=== PATIENT | female | born 1945 | race Two or more races ===

== ENCOUNTER 2016-11-26 21:02 | Emergency (ER) | payer OTHER ==
[~2016-11-26] VITALS: Ht 152.4 cm; Wt 63.5 kg
[2016-11-26] MEDS ORDERED: ONDANSETRON 2MG/ML, 2ML IVPush ONE (22:00)
[2016-11-26] MEDS ORDERED: SODIUM CHLORIDE 0.9% 1,000ML IVBOLUS ONE (22:00)
[2016-11-26] MEDS ORDERED: ONDANSETRON 2MG/ML, 2ML ONE (22:01)
[2016-11-26 22:21] LABS: BLOOD UREA NITROGEN 10 mg/dL (7-18)
[2016-11-26 22:24] LABS: ASPARTATE AMINO TRANSFERASE 41 U/L (15-37)
[2016-11-26] MEDS ORDERED: METF10002 PO (22:39)
[2016-11-26] MEDS ORDERED: PROM12.554 PR (22:40)
[2016-11-26] MEDS ORDERED: CIPR500T87 PO (22:41)
[2016-11-26] MEDS ORDERED: FLUO20CA8 PO (22:42)
[2016-11-26] MEDS ORDERED: ACET-1600 PO (22:43)
[2016-11-26] MEDS ORDERED: [UNRECOGNIZED DRUG - CODE] PO (22:44)
[2016-11-27 00:17] VITALS: BP 121/70
== END 2016-11-27 00:20 | disposition home or self-care (01) ==
LOC: ED 22:16
DX: E86.0 Dehydration (principal); E78.00 Pure hypercholesterolemia, unspecified
CPT/HCPCS: 36415; 71010; 80053; 81001; 85025; 87086; 93005; 96361; 96374; 99285; J2405; J7030